=== PATIENT | male | born 2000 | race Caucasian/White ===

== ENCOUNTER 2021-10-03 19:57 | Emergency (ER) | payer OTHER, BC, SELFPAY ==
--- NOTE | ~2021-10-03 | XR_ITS ---
EXAMINATION: XR hand RT min 3V, XR wrist RT 2V DATE: 10/03/2021 21:23 INDICATION: Posterior right hand pain and erythema TECHNIQUE: 1. Posteroanterior and lateral views of the right wrist were obtained. 2. Dorsal palmar, oblique and lateral views of the right hand were obtained. COMPARISON: None. FINDINGS: Alignment of the hand and wrist are normal. There is a subtle linear lucency consistent with nondispl aced fracture extending across the scaphoid waist. No fracture gap or incongruity at the articular webb rfaces of either the wrist or metacarpal joints. No other fractures identified. Joint spaces are nor mal. Soft tissue swelling over the dorsum of the carpus. IMPRESSION: 1. Nondisplaced scaphoid waist fracture. Reviewed, dictated and finalized at location . [employer] IMPRESSION: 1. Nondisplaced scaphoid waist fracture.
[2021-10-03 20:23] VITALS: BP 145/84; PULSE 83; RESP 16; TEMP 36.6; O2SAT 97
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
--- NOTE | 2021-10-03 22:20 | PC.NURSE ---
right ocl cock up splint applied cap refill <2sec post application
[2021-10-03 22:29] VITALS: BP 141/60; PULSE 84; RESP 18; O2SAT 99
== END 2021-10-03 22:25 | disposition home or self-care (01) ==
PROVIDERS: Emergency Provider Emergency Medicine; PCP Family Medicine
DX: S62.024A Nondisplaced fracture of middle third of navicular [scaphoid] bone of right wrist, initial encounter for closed fracture (principal); W22.8XXA Striking against or struck by other objects, initial encounter; V89.2XXA Person injured in unspecified motor-vehicle accident, traffic, initial encounter
CPT/HCPCS: 29125; 73100; 73130; 99284